=== PATIENT | female | born 1990 | race Caucasian/White ===

== ENCOUNTER 2020-01-18 09:45 | Emergency (ER) | payer MEDICAID ==
[2020-01-18 09:53] VITALS: BP 142/78
--- NOTE | 2020-01-18 09:57 | ER Document Report ---
HPI - HPI Patient complains to provider of: Insect bites Time Seen by Provider: 01/18/20 09:53 Onset: Yesterday Onset/Duration: Intermittent, Waxing and waning Pain Level: Denies Context: This is a 39-year-old female presented to the emergency room today stating that she had bitten by insects yesterday and she is allergic to them she has red raised areas to her lower extremities again has happened over 24 hours ago she is got no difficulty breathing no difficulty swallowing Associated Symptoms: None Exacerbated by: Denies Similar symptoms previously: Yes Recently seen / treated by doctor: No Past Medical History - General Information source: Patient - Social History Smoking Status: Current Every Day Smoker Cigarette use (# per day): Yes - 20 Chew tobacco use (# tins/day): No Smoking Education Provided: No Frequency of alcohol use: None Drug Abuse: None Family History: None Vertical Provider Document - CONSTITUTIONAL Agree With Documented VS: Yes Exam Limitations: No Limitations - HEENT HEENT: Atraumatic, Conjuctival Injection, Normocephalic, PERRLA - NECK Neck: Normal Inspection - RESPIRATORY Respiratory: Breath Sounds Normal, No Respiratory Distress - CARDIOVASCULAR Cardiovascular: Regular Rate, Regular Rhythm - BACK Back: Normal Inspection - MUSCULOSKELETAL/EXTREMETIES Musculoskeletal/Extremeties: MAEW Course - Re-evaluation Re-evalutation: 01/18/20 09:55 No difficulty breathing no difficulty swallowing. Pruritic rash to lower extremities. - Vital Signs Vital signs: Temp Pulse Resp BP Pulse Ox 98.8 F 78 16 142/78 H 98 01/18/20 09:52 01/18/20 09:52 01/18/20 09:52 01/18/20 09:52 01/18/20 09:52 Discharge - Discharge Clinical Impression: Insect bites and stings Qualifiers: Encounter type: initial encounter Qualified Code(s): W57.XXXA - Bitten or stung by nonvenomous insect and other nonvenomous arthropods, initial encounter Disposition: HOME, SELF-CARE Instructions: Insect Bites ([facility]) Prescriptions: Diphenhydramine HCl [Benadryl 25 mg Capsule] 25 mg PO Q6 PRN #25 capsule PRN Reason: Prednisone [Deltasone 20 mg Tablet] 3 tab PO DAILY 5 Days tablet Famotidine [Pepcid] 20 mg PO Q12 #20 tablet
== END 2020-01-18 09:59 | disposition home or self-care (01) ==
LOC: ER 09:45
DX: T14.8XXA Other injury of unspecified body region, initial encounter (principal); W57.XXXA Bitten or stung by nonvenomous insect and other nonvenomous arthropods, initial encounter; R21 Rash and other nonspecific skin eruption; F17.210 Nicotine dependence, cigarettes, uncomplicated
CPT/HCPCS: 99283